=== PATIENT | male | born 1985 | race Caucasian/White ===

== ENCOUNTER 2018-11-25 07:07 | Emergency (ER) | payer MEDICAID ==
[~2018-11-25] VITALS: Ht 190.5 cm; Wt 81.2 kg
[2018-11-25 07:18] VITALS: Ht 190.5 cm; Wt 81.2 kg
[2018-11-25 08:07] VITALS: BP 129/69
== END 2018-11-25 08:07 | disposition home or self-care (01) ==
LOC: ED 07:07
DX: F41.9 Anxiety disorder, unspecified (principal); Z76.0 Encounter for issue of repeat prescription

== ENCOUNTER 2018-11-27 13:38 | Emergency (ER) | payer MEDICAID ==
[~2018-11-27] VITALS: Ht 190.5 cm; Wt 80.3 kg
[2018-11-27 13:46] VITALS: Ht 190.5 cm; Wt 80.3 kg
[2018-11-27 16:22] VITALS: BP 128/81
== END 2018-11-27 16:22 | disposition home or self-care (01) ==
LOC: ED 13:38
DX: F41.9 Anxiety disorder, unspecified (principal)